=== PATIENT | female | born 2000 | race African-American/Black ===

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

== ENCOUNTER 2021-10-17 13:29 | Emergency (ER) | payer MEDICAID ==
[~2021-10-17] VITALS: Ht 170.2 cm; Wt 130.2 kg
[2021-10-17] MEDS ORDERED: ASPirin 81 mg TAB PO ONE (14:30)
[2021-10-17 14:50] LABS: Urine Bacteria NONE SEEN /hpf (None Seen); Urine Blood Negative /uL (Negative); Urine Mucus FEW (None Seen); Urine Specific Gravity 1.034 (1.001-1.035); Urine WBC 1 /hpf (0 - 5)
[2021-10-17 15:06] LABS: Basophils # (auto) 0.1 10 ^3/uL (0-0.2); Eosinophils # (auto) 0.3 10 ^3/uL (0-0.8); Eosinophils % (auto) 1.8 % (0.0-7.0); Mean Corpuscular Volume 74.6 fL (80.0-100.0)
[2021-10-17 15:07] LABS: Basophils % (auto) 0.5 % (0.0-2.0); Hemoglobin 12.4 g/dL (12.2-16.2); Lymphocytes # (auto) 2.6 10 ^3/uL (0.4-5.4); Lymphocytes % (auto) 17.3 % (10.0-50.0); Mean Corpuscular Hemoglobin 24.4 pg (28.0-32.0); Mean Corpuscular Hgb Conc. 32.7 g/dL (32.0-36.0); Monocytes # (auto) 0.8 10 ^3/uL (0-1.3); Monocytes % (auto) 5.2 % (0.0-12.0); Neutrophils # (auto) 11.1 10 ^3/uL (1.6-8.6); Neutrophils % (auto) 75.2 % (37.0-80.0); Red Cell Distribution Width 14.8 % (11.8-14.3); White Blood Cell 14.8 10^3/uL (4.4-10.8)
[2021-10-17 15:28] LABS: Albumin 3.3 g/dL (3.4-5.0); Calcium 9.2 mg/dL (8.5-10.1); Potassium 3.6 mmol/L (3.5-5.1)
[2021-10-17 15:32] LABS: BUN/Creatinine Ratio 9.7; Bilirubin, Total 0.2 mg/dL (0.2-1.0); Total Protein 8.4 g/dL (6.4-8.2)
[2021-10-17] MEDS ORDERED: AZIT250T9 PO (16:13)
[2021-10-17 19:28] VITALS: BP 116/84
== END 2021-10-17 22:00 | disposition home or self-care (01) ==
LOC: ER 13:29
DX: R07.89 Other chest pain (principal); F41.9 Anxiety disorder, unspecified; D72.829 Elevated white blood cell count, unspecified; R09.1 Pleurisy
CPT/HCPCS: 36415; 80053; 81001; 84443; 84484; 85025; 93005

== ENCOUNTER 2022-04-10 06:26 | Emergency (ER) | payer MEDICAID ==
[~2022-04-10] VITALS: Ht 167.6 cm; Wt 128.6 kg
[~2022-04-10 06:26] MED LIST: AZIT250T9 PO
[2022-04-10] MEDS ORDERED: PRED20TA2 PO (08:07)
[2022-04-10] MEDS ORDERED: AZIT500T66 PO (08:07)
[2022-04-10 08:14] VITALS: BP 136/110
== END 2022-04-10 08:26 | disposition home or self-care (01) ==
LOC: ER 06:26
DX: J03.90 Acute tonsillitis, unspecified (principal); J45.909 Unspecified asthma, uncomplicated; F17.210 Nicotine dependence, cigarettes, uncomplicated; Z79.2 Long term (current) use of antibiotics; Z79.899 Other long term (current) drug therapy